=== PATIENT | male | born 1980 | race Caucasian/White ===

== ENCOUNTER 2017-02-19 14:34 | Emergency (ER) | payer OTHER ==
[2017-02-19 14:43] VITALS: BP 127/78
--- NOTE | 2017-02-19 18:07 | UC ---
Bri Koroma Edward, scribed for Clark Rainey MD on 02/19/17 at 1551 . Skin Complaint HPI - HPI Summary HPI Summary: 36 y/o male presents to [facility] c/o a rash behind the L knee. Rash started around 3 -4 days ago. There is mild intermittent pain characterized as an aching pain. Patient also c/o pruritus and skin tenseness in the rash area. Associated sx: lightheaded and fatigue two days ago. Denies drainage and fever. Patient states there are ticks in his yard, but did not notice a tick in the rash area initially. - History of Current Complaint Chief Complaint: UCRas Time Seen by Provider: 02/19/17 15:47 Stated Complaint: RASH Hx Obtained From: Patient Onset/Duration: Lasting Days Pain Intensity: 5 Pain Scale Used: 0-10 Numeric Location: Other - Upper L calf Character: Pruritus, Pain - Mild aching pain, Redness Associated Signs & Symptoms: Positive: Rash - Mild pain, pruritus, Lightheadedness - and fatigue 2 days ago. Negative: Fever, Drainage - Allergy/Home Medications Allergies/Adverse Reactions: Allergies Allergy/AdvReac Type Severity Reaction Status Date / Time Gluten Meal Allergy GI Upset Verified 02/19/17 14:43 Milk-related Compounds Allergy GI Upset Verified 02/19/17 14:43 Review of Systems Constitutional: Negative Skin: Rash - Behind L knee - mild intermittent pain, pruritus, skin tenseness Eyes: Negative ENT: Negative Respiratory: Negative Cardiovascular: Negative Gastrointestinal: Negative Genitourinary: Negative Motor: Negative Neurovascular: Negative Musculoskeletal: Negative Neurological: Other - Lightheadedness and fatigue 2 days ago Psychological: Negative All Other Systems Reviewed And Are Negative: Yes PMH/Surg Hx/FS Hx/Imm Hx Previously Healthy: Yes Other History Of: Negative For: HIV - Surgical History Surgical History: None - Family History Known Family History: Positive: Cardiac Disease - Father of cardiomyopathy at 29, Other - Mother - GERD - Social History Occupation: Employed Full-time Lives: With Family - Alcohol Use: Occasionally Substance Use Type: None Smoking Status (MU): Never Smoked Tobacco Physical Exam Triage Information Reviewed: Yes Appearance: Well-Appearing, No Pain Distress Vital Signs: Initial Vital Signs Temp 98.3 F 02/19/17 14:37 Pulse 86 02/19/17 14:37 Resp 18 02/19/17 14:37 BP 127/78 02/19/17 14:37 Pulse Ox 100 02/19/17 14:37 Vital Signs Reviewed: Yes Eye Exam: Normal ENT: Positive: Normal ENT inspection Neck: Positive: Supple, Nontender Respiratory: Positive: Lungs clear, Normal breath sounds Cardiovascular: Positive: RRR Abdomen Description: Positive: Nontender, Soft Bowel Sounds: Positive: Present Musculoskeletal: Positive: Strength Intact, ROM Intact Neurological: Positive: Alert Psychological Exam: Normal Skin: Positive: rashes - 10 cm minimally blanching rash in the upper L calf erythema with an area of pararescue craftsman color in the centere with no drainage. Surrounding the erythema there is pararescue craftsman blanching erythema Course/Dx - Course Course Of Treatment: Medications reviewed on patient visit. WILL RX DOXY. STOP THE TRIPLE ABX IN CASE PT IS ALLERGIC TO NEOSPORIN. PT WILL GET RECHECKED IF HE WORSENS OR DOES NOT IMPROVE. - Diagnoses Provider Diagnoses: RASH LEFT LEG Discharge - Discharge Plan Condition: Stable Disposition: HOME Prescriptions: DOXYcycline CAP(*) [DOXYcycline 100MG CAP(*)] 100 mg PO BID #42 cap Mupirocin 2% OINT* [Bactroban 2 % Oint*] 1 applic TOPICAL BID #1 tube Patient Education Materials: Acute Rash (ED) Referrals: Woodrow Maldonado MD [Primary Care Provider] - Additional Instructions: FOLLOW UP WITH YOUR DOCTOR. TAKE THE DOXYCYCLINE DIRECTED. STOP USING THE TRIPLE ANTIBIOTIC. GO TO THE EMERGENCY DEPARTMENT FOR ANY WORSENING OF YOUR CONDITION OR QUESTIONS OR CONCERNS. The documentation as recorded by the Bri fraga Edward accurately reflects the service I personally performed and the decisions made by me, Clark Rainey MD.
== END 2017-02-19 16:11 | disposition home or self-care (01) ==
LOC: UCEAST 14:34
DX: R21 Rash and other nonspecific skin eruption (principal); Z91.011 Allergy to milk products
CPT/HCPCS: 99212; G0463